=== PATIENT | female | born 2000 | race Caucasian/White ===

== ENCOUNTER 2020-04-07 08:46 | Outpatient (CLI) | payer BC, SELFPAY ==
[2020-04-07 08:56] LABS: Hematocrit 38.1 % (35.0-49.0); Hemoglobin 11.5 g/dL (12.0-15.0); Mean Corpuscular HGB Conc 30.2 g/dL (32.0-36.0); Mean Corpuscular Hemoglobin 25.3 pg (27.0-31.0); Mean Corpuscular Volume 83.9 fL (78.0-102.0); Mean Platelet Volume 8.3 fl (9.2-11.8); Platelet Count Result 335 K/mm3 (150-420); Red Blood Count 4.54 M/mm3 (4.20-5.40); Red Cell Distribution Width 14.6 % (11.6-14.4); White Blood Count 12.2 K/mm3 (4.8-10.8)
[2020-04-07 09:52] LABS: Alanine Aminotransferase 23 U/L (14-59); Albumin Level 3.6 g/dL (3.4-5.0); Alkaline Phosphatase 70 U/L (46-116); Anion Gap 8 mmol/L (8-16); Aspartate Amino Transferase < 10 U/L (15-37); Bilirubin,Total 0.1 mg/dL (0.00-1.00); Blood Urea Nitrogen 9 mg/dL (7-18); Calcium 8.8 mg/dL (8.5-10.1); Carbon Dioxide 26 mmol/L (21-32); Chloride 105 mmol/L (98-108); Estimated Glomerular Filt Rate > 60; Glucose 100 mg/dL (70-99); Osmolality Calculated 286 mOsm/kg (285-295); Potassium 4.5 mmol/L (3.5-5.1); Sodium 139 mmol/L (136-145); Total Protein 7.6 g/dL (6.4-8.2)
== END 2020-04-07 08:47 | disposition home or self-care (01) ==
PROVIDERS: PCP Family Medicine; Visit Provider Family Medicine
DX: D64.9 Anemia, unspecified (principal)
CPT/HCPCS: 36415; 80053; 85027

== ENCOUNTER 2021-02-10 09:42 | Outpatient (CLI) | payer BC, SELFPAY ==
[2021-02-10 10:49] LABS: SARS-CoV-2 RNA PCR Negative (Negative)
== END 2021-02-10 09:43 | disposition home or self-care (01) ==
LOC: CHSLAB 09:45
PROVIDERS: PCP Family Medicine; Visit Provider Nurse Practitioner Family
DX: R09.81 Nasal congestion (principal); Z20.822 Contact with and (suspected) exposure to COVID-19
CPT/HCPCS: C9803; U0003; U0005

== ENCOUNTER 2021-02-10 11:17 | Emergency (ER) | payer BC, SELFPAY ==
--- NOTE | ~2021-02-10 | XR_ITS ---
XR chest 1V portable DATE: 02/10/2021 13:34 INDICATION: Cough, fever, shortness of breath. Headache. TECHNIQUE: Portable upright AP chest on 02/10/2021 at 1346 hours COMPARISON: None FINDINGS: Normal heart size. No hilar or mediastinal enlargement. No pulmonary infiltrate or consolid ation, pleural effusion or pulmonary vascular congestion or pneumothorax is detected. Included skelet al structures are unremarkable. IMPRESSION: No active cardiopulmonary disease Reviewed, dictated and finalized at location B.
[2021-02-10 13:00] VITALS: BP 152/107; PULSE 117; RESP 18; TEMP 37.3; O2SAT 98
--- NOTE | 2021-02-10 13:20 | ED.GENADULT ---
HPI - General Adult General Chief complaint: Upper Respiratory Infection Stated complaint: fever,vomiting,coughing, Covid -, Source: patient Mode of arrival: ambulatory Limitations: no limitations History of Present Illness HPI narrative: Elda is a 20F with a PMH of anemia, obesity, insomnia, and chronic sinusitis that prestented to the ED with several days of feeling ill. She developed a low grade fever 4-5 days ago. She also has fatigue, body aches, congestion, weakness and a persistent cough. She also get very nauseated when she eats. She has had some non bloody vomiting. No diarrhea. Related Data Allergies Allergy/AdvReac Type Severity Reaction Status Date / Time No Known Allergies Allergy Verified 02/08/21 10:43 Review of Systems Constitutional: Constitutional: Reports as per HPI Eyes: Eyes: Reports no additional eye complaints ENT: Reports as per HPI Cardiovascular: Cardiovascular: Reports no additional cardiovascular complaints Respiratory: Respiratory: Reports as per HPI Gastrointestinal: Gastrointestinal: Reports as per HPI Genitourinary: Genitourinary: Reports no additional female genitourinary complaints Musculoskeletal: Musculoskeletal: Reports myalgias Integumentary/Breasts: Skin/Breast: Reports system reviewed and no additional complaints, except as docu Neurologic: Reports system reviewed and no additional complaints, except as documented Psychiatric: Psychiatric: Reports no additional psychiatric complaints Endocrine: Endocrine: Reports no additional endocrine complaints Hematologic/Lymphatic: Hematologic/Lymphatic: Reports no additional hematologic/lymphatic complaints Allergic/Immunologic: Allergic/Immunologic: Reports no additional allergic/immunologic complaints [facility] Past Medical History Medical History Anemia Cerumen impaction Chronic sinusitis Insomnia No active medical problems Obesity Surgical History Surgical History No history of previous surgery Family History Family History Father Hypertension Mother Hypertension Social History Social History Smoking status: Never smoker Additional occupation/education comments: [employer] Exam Const: General: no acute distress and alert Orientation/consciousness: patient oriented x3 Limitations: No altered mental status HENMT: Head: normal to inspection Mouth: Yes Normal oral and palatal mucosa present Other: atrauamtic. Enlarged tonsils. Posterior pharynx cobblestoning, Erythematous and boggy nasal turbinates. Eyes: Conjunctivae: conjunctivae normal Pupils: Equal, round and reactive pupils present Neck: Neck: normal visual inspection Other: no lymphadenopathy Chest: Chest palpation & inspection: normal inspection of the chest Resp: Effort & Inspection: normal respiratory effort and not labored Auscultation: clear to auscultation bilaterally Cardio: Rate: tachycardic Rhythm: regular rhythm GI: Inspection: non-distended GI Palp: Yes Soft to palpation, No Tenderness to palpation present (GI) and No Guarding due to palpation present (GI) : General: Yes no CVA tenderness Skin: Other: Skin was warm and wet Neuro: General: patient oriented x3 and moves all extremities Extrem: General: normal to inspection Psych: Mental Status: mental status grossly normal Course Course Emergency Course: Given Tylenol. Ordered flu swab, labs and CXR. COVID was negative on 02/10 and 02/08. Vital Signs Vital signs: Vital Signs Temperature 99.1 F 02/10/21 13:00 Pulse Rate 117 H 02/10/21 13:00 Respiratory Rate 18 02/10/21 13:00 Blood Pressure 152/107 H 02/10/21 13:00 Pulse Oximetry 98 02/10/21 13:00 Temperature 99.1 F 02/10/21 14:28 Pulse Rate 111 H 02/10/21 14:28
[2021-02-10 13:34] LABS: Basophils Absolute Auto 0.04 K/mm3 (0.00-0.10); Basophils Percent Auto 0.4 % (0.0-1.0); Eosinophils Absolute Auto 0.01 K/mm3 (0.02-0.50); Eosinophils Percent Auto 0.1 % (1.0-6.0); Hematocrit 41.2 % (35.0-49.0); Hemoglobin 13.3 g/dL (12.0-15.0); Immature Granulocyte Absolute 0.09 K/mm3 (0.00-0.00); Immature Granulocyte Percent A 0.9 % (0.0-0.0); Lymphocytes Absolute Auto 1.14 K/mm3 (1.10-4.50); Lymphocytes Percent Auto 11.9 % (18.0-42.0); Mean Corpuscular HGB Conc 32.3 g/dL (32.0-36.0); Mean Corpuscular Hemoglobin 26.7 pg (27.0-31.0); Mean Corpuscular Volume 82.6 fL (78.0-102.0); Mean Platelet Volume 8.5 fl (9.2-11.8); Monocytes Absolute Auto 0.73 K/mm3 (0.10-0.90); Monocytes Percent Auto 7.6 % (2.0-11.0); Neutrophils Absolute Auto 7.6 K/mm3 (1.7-7.2); Neutrophils Percent Auto 79.1 % (50.0-70.0); Platelet Count Result 209 K/mm3 (150-420); Red Blood Count 4.99 M/mm3 (4.20-5.40); Red Cell Distribution Width 14.2 % (11.6-14.4); White Blood Count 9.6 K/mm3 (4.8-10.8)
[2021-02-10 13:35] LABS: Add Urine Microscopic? YES; Appearance Urine Sl Cloudy (Clear); Bilirubin Urine 1+ (Negative); Blood Urine 3+ (Negative); Color Urine Yellow (Yellow); Glucose Urine UA Negative (Negative); Ketones Urine Trace (Negative); Leukocyte Esterase Ur Trace (Negative); Nitrate Urine Negative (Negative); Protein Urine 3+ (Negative); Specific Grav Ur 1.025 (1.010-1.020); pH Urine 6.5 (5.0-8.0)
[2021-02-10 13:39] LABS: Bacteria Urine 1+ /hpf; Mucus Urine Moderate /lpf; Squamous Epithelial Cell Urine Moderate /hpf (Few)
[2021-02-10 13:40] LABS: WBC Urine 0-3 /hpf (0-3)
[2021-02-10 13:48] LABS: Alanine Aminotransferase 93 U/L (14-59); Albumin Level 3.9 g/dL (3.4-5.0); Alkaline Phosphatase 68 U/L (46-116); Anion Gap 16 mmol/L (8-16); Aspartate Amino Transferase 50 U/L (15-37); Bilirubin,Total 0.3 mg/dL (0.00-1.00); Blood Urea Nitrogen 9 mg/dL (7-18); Calcium 8.9 mg/dL (8.5-10.1); Carbon Dioxide 23 mmol/L (21-32); Chloride 98 mmol/L (98-108); Estimated CRCL calculation 151 ml/min; Estimated Glomerular Filt Rate > 60; Glucose 105 mg/dL (70-99); Osmolality Calculated 282 mOsm/kg (285-295); Potassium 3.6 mmol/L (3.5-5.1); Sodium 137 mmol/L (136-145); Total Protein 9.4 g/dL (6.4-8.2)
[2021-02-10 13:51] LABS: Influenza Control Valid (Valid)
[2021-02-10] MEDS: cefTRIAXone 1 GM VIAL IM (14:10)
[2021-02-10] MEDS: LIDOCAINE HCL 1% LOCAL INJ 20 ML VIAL (14:13)
[2021-02-10 14:28] VITALS: BP 158/99; PULSE 111; RESP 16; TEMP 37.3; O2SAT 96
== END 2021-02-10 14:33 | disposition home or self-care (01) ==
PROVIDERS: Emergency Provider Family Medicine; PCP Family Medicine
DX: N39.0 Urinary tract infection, site not specified (principal); J06.9 Acute upper respiratory infection, unspecified
CPT/HCPCS: 71045; 80053; 81001; 85025; 87086; 87804; 96372; 99283; J0696

== ENCOUNTER 2021-02-11 10:01 | Emergency (ER) | payer BC, SELFPAY ==
[2021-02-11 10:38] VITALS: BP 186/101; PULSE 93; RESP 18; TEMP 36.5; O2SAT 99
[2021-02-11] MEDS: LACTATED RINGERS 1,000 ML 999 ML IV CONT (10:42)
[2021-02-11] MEDS: KETOROLAC 30 MG/ML VIAL (*BKC) IV PUSH (10:42)
[2021-02-11] MEDS: PHENAZOPYRIDINE HCL 100 MG TABLET 200 MG PO (10:49)
[2021-02-11 11:11] VITALS: BP 133/86; PULSE 86; RESP 18; O2SAT 97
[2021-02-11 11:36] LABS: Add Urine Microscopic? YES; Appearance Urine Clear (Clear); Bilirubin Urine Negative (Negative); Blood Urine 2+ (Negative); Color Urine Light Yellow (Yellow); Glucose Urine UA Negative (Negative); Ketones Urine Negative (Negative); Leukocyte Esterase Ur Negative LEU/UL (Negative); Nitrate Urine Negative (Negative); Protein Urine Negative (Negative); Specific Grav Ur <= 1.005 (1.010-1.020); Urobilinogen Urine 0.2 mg/dL (0.2-1.0); pH Urine 6.5 (5.0-8.0)
--- NOTE | 2021-02-11 11:42 | ED.FEMALEGU ---
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 She stated she has had urinary frequency, urgency and dysuria for the past 2 days, with discomfort radiating to her back on both sides to her groin. The discomfort has been moderately severe, sharp, ongoing since for the last 2 days, partially relieved with aspirin at home. No other signs/ symptoms. Duration is ongoing. MD elicited complaint: dysuria and pelvic pain Onset (ago): minute(s) Location of symptoms: external genitalia Severity: moderate Quality of pain: cramping Consistency: intermittent Vaginal discharge: none Vaginal bleeding: none Urinary symptoms: Dysuria and Frequency Exacerbating factors: urination Relieving factors: urination and medication Associated symptoms: abdominal pain Treatment prior to arrival: NSAIDs Sexual activity: Yes Patient : No Related Data Allergies Allergy/AdvReac Type Severity Reaction Status Date / Time No Known Allergies Allergy Verified 02/08/21 10:43 Review of Systems Constitutional: Constitutional: Reports no additional constitutional complaints Eyes: Eyes: Reports no additional eye complaints ENT: Reports system reviewed and no additional complaints, except as documented Cardiovascular: Cardiovascular: Reports no additional cardiovascular complaints Respiratory: Respiratory: Reports no additional respiratory complaints Gastrointestinal: Gastrointestinal: Reports no additional gastrointestinal complaints Genitourinary: Genitourinary: Reports no additional female genitourinary complaints Musculoskeletal: Musculoskeletal: Reports no additional musculoskeletal complaints Integumentary/Breasts: Skin/Breast: Reports system reviewed and no additional complaints, except as docu Neurologic: Reports system reviewed and no additional complaints, except as documented Psychiatric: Psychiatric: Reports no additional psychiatric complaints Endocrine: Endocrine: Reports no additional endocrine complaints Hematologic/Lymphatic: Hematologic/Lymphatic: Reports no additional hematologic/lymphatic complaints Allergic/Immunologic: Allergic/Immunologic: Reports no additional allergic/immunologic complaints PMFSH Past Medical History Medical History Anemia Cerumen impaction Chronic sinusitis Insomnia No active medical problems Obesity Surgical History Surgical History No history of previous surgery Family History Family History Father Hypertension Mother Hypertension Social History Social History Smoking status: Never smoker Additional occupation/education comments: [employer] Exam Const: General: no acute distress HENMT: Head: normal to inspection Ears: external ears normal and TM's normal bilaterally General nose exam: Normal external nose present Throat: posterior oropharynx normal Eyes: Conjunctivae: conjunctivae normal Pupils: Equal, round and reactive pupils present Neck: Neck: normal visual inspection Chest: Chest palpation & inspection: normal inspection of the chest Resp: Effort & Inspection: normal respiratory effort Auscultation: clear to auscultation bilaterally Cardio: Rate: regular rate Rhythm: regular rhythm GI: GI Palp: Yes Soft to palpation (nontender) Course Vital Signs Vital signs: Vital Signs Temperature 36.5 C 02/11/21 10:38 Pulse Rate 93 02/11/21 10:38 Respiratory Ra
[2021-02-11 11:43] LABS: Squamous Epithelial Cell Urine Few /hpf (Few); WBC Urine 0-3 /hpf (0-3)
[2021-02-11 11:44] LABS: Bacteria Urine Trace /hpf
[2021-02-11 12:52] LABS: Urine Pregnancy Test Negative
[2021-02-11 12:53] LABS: Pregnancy On Board Control Positive
[2021-02-11 13:32] VITALS: BP 155/78; PULSE 93; RESP 18; O2SAT 97
== END 2021-02-11 13:33 | disposition home or self-care (01) ==
PROVIDERS: Emergency Provider Emergency Medicine; PCP Family Medicine
DX: N12 Tubulo-interstitial nephritis, not specified as acute or chronic (principal)
CPT/HCPCS: 81001; 81025; 87205; 96361; 96365; 96375; 99283; 99284; A9270; J0696; J1885; J7120

== ENCOUNTER 2021-02-12 15:16 | Emergency (ER) | payer BC, SELFPAY ==
--- NOTE | ~2021-02-12 | CT_ITS ---
EXAMINATION: CT abdomen pelvis w con DATE: 02/12/2021 17:32 INDICATION: Low abdominal pain. TECHNIQUE: Computed tomography (CT) of the abdomen and pelvis was performed with 100 mL Omnipaque 350 intravenous contrast. Automated exposure control and iterative reconstruction technique were employe d. The dose-length product was 1667.98 mGy-cm. COMPARISON: None. FINDINGS: The visualized portions of the lung bases are clear without pneumonia or pleural effusion. The heart size is normal. No pericardial effusion. The liver, gallbladder, spleen, pancreas, adrenal glands, and kidneys are normal. There are no dilated loops of bowel. The appendix is normal. There ar e no pathologically enlarged lymph nodes. There is no free intraperitoneal fluid. There is mild thora cic spondylosis. IMPRESSION: 1. No etiology for the patient's symptoms. Reviewed, dictated and finalized at location A.
[2021-02-12 15:50] VITALS: BP 146/107; PULSE 120; RESP 18; TEMP 37.1; O2SAT 96
[2021-02-12] MEDS: PANTOPRAZOLE SODIUM IV 40 MG VIAL IV PUSH (16:30)
[2021-02-12] MEDS: SODIUM CHLORIDE 0.9% IV 1,000 ML 999 ML IV CONT (16:30)
--- NOTE | 2021-02-12 16:31 | ED.WEAKNESS ---
HPI - Weakness General Chief complaint: Weakness Stated complaint: weakness, stomach pain Time Seen by Provider: 02/12/21 15:52 Source: patient, family and RN notes reviewed Mode of arrival: ambulatory Limitations: no limitations History of Present Illness Onset (ago): day(s) (1 pt had mild lower abdominal pain and nasal congestion. no acute weakness in the ED. vomiting and loose stools. ) Duration: intermittent Location: other (mild lower abdominal pain) Migration: none Severity: mild Severity scale (1-10): 5 Exacerbating factors: none Associated symptoms: fever/chills and nausea/vomiting Related Data Allergies Allergy/AdvReac Type Severity Reaction Status Date / Time No Known Allergies Allergy Verified 02/08/21 10:43 Review of Systems Review of Systems: All systems reviewed & are unremarkable except as noted in HPI and below Constitutional: Constitutional: Reports as per HPI and Reports no additional constitutional complaints Eyes: Eyes: Reports as per HPI and Reports no additional eye complaints ENT: Reports system reviewed and no additional complaints, except as documented and Reports as per HPI Cardiovascular: Cardiovascular: Reports as per HPI and Reports no additional cardiovascular complaints Respiratory: Respiratory: Reports as per HPI and Reports no additional respiratory complaints Gastrointestinal: Gastrointestinal: Reports as per HPI, Reports no additional gastrointestinal complaints, Reports abdominal pain, Reports diarrhea, Reports nausea and Reports vomiting Genitourinary: Genitourinary: Reports no additional female genitourinary complaints and Reports as per HPI Musculoskeletal: Musculoskeletal: Reports no additional musculoskeletal complaints and Reports as per HPI Integumentary/Breasts: Skin/Breast: Reports system reviewed and no additional complaints, except as docu and Reports as per HPI Neurologic: Reports system reviewed and no additional complaints, except as documented and Reports as per HPI Psychiatric: Psychiatric: Reports no additional psychiatric complaints and Reports as per HPI Endocrine: Endocrine: Reports no additional endocrine complaints and Reports as per HPI Hematologic/Lymphatic: Hematologic/Lymphatic: Reports no additional hematologic/lymphatic complaints and Reports as per HPI Allergic/Immunologic: Allergic/Immunologic: Reports no additional allergic/immunologic complaints and Reports as per HPI PMFSH Past Medical History Medical History Anemia Cerumen impaction Chronic sinusitis Insomnia No active medical problems Obesity Surgical History Surgical History No history of previous surgery Family History Family History Father Hypertension Mother Hypertension Social History Social History Smoking status: Never smoker Additional occupation/education comments: [employer] Exam Const: General: no acute distress and alert Nutritional Appearance: obese Orientation/consciousness: patient oriented x3 Limitations: no limitations HENMT: Head: normal to inspection Ears: external ears normal and TM's normal bilaterally Mouth: Yes lip normal and Yes moist mucous membranes Teeth and gingiva: dentition normal Throat: posterior oropharynx normal Eyes: Conjunctivae: conjunctivae normal Pupils: Equal, round and reactive pupils present EOM: EOMs intact bilaterally Neck: Neck: normal visual inspection and no lymphadenopathy Chest: Chest palpation & inspection: normal inspection of the chest Resp: Effort & Inspection: normal respiratory effort Auscultation: clear to auscultation bilaterally Cardio: Rate: tachycardic GI: GI Palp: Yes Soft to palpation and Yes Tenderness to palpation present (GI) (minimal suprapubic tend
[2021-02-12] MEDS: ONDANSETRON INJ 4 MG/2 ML VIAL IV PUSH (16:32)
[2021-02-12 16:43] LABS: Appearance Urine Clear (Clear); Bilirubin Urine Negative (Negative); Blood Urine 2+ (Negative); Glucose Urine UA Negative (Negative); Hematocrit 37.6 % (35.0-49.0); Ketones Urine Negative (Negative); Leukocyte Esterase Ur Negative (Negative); Mean Corpuscular HGB Conc 31.9 g/dL (32.0-36.0); Mean Corpuscular Hemoglobin 26.6 pg (27.0-31.0); Mean Corpuscular Volume 83.4 fL (78.0-102.0); Mean Platelet Volume 9.5 fl (9.2-11.8); Nitrate Urine Positive (Negative); Platelet Count Result 177 K/mm3 (150-420); Protein Urine 2+ (Negative); Red Blood Count 4.51 M/mm3 (4.20-5.40); Red Cell Distribution Width 13.9 % (11.6-14.4); Specific Grav Ur 1.025 (1.010-1.020); White Blood Count 6.9 K/mm3 (4.8-10.8)
[2021-02-12 16:45] VITALS: BP 150/80
[2021-02-12] MEDS: KETOROLAC (*BKC) 60 MG/2 ML VIAL IM (16:47)
[2021-02-12 16:49] LABS: Add Urine Microscopic? YES; Color Urine Orange (Yellow); Squamous Epithelial Cell Urine Few /hpf (Few); WBC Urine 0-3 /hpf (0-3)
[2021-02-12 16:50] LABS: Bacteria Urine Trace /hpf; Pregnancy On Board Control NEGATIVE; Urine Pregnancy Test Negative
[2021-02-12 17:04] LABS: Alanine Aminotransferase 75 U/L (14-59); Albumin Level 3.3 g/dL (3.4-5.0); Alkaline Phosphatase 68 U/L (46-116); Anion Gap 12 mmol/L (8-16); Aspartate Amino Transferase 56 U/L (15-37); Bilirubin,Total 0.1 mg/dL (0.00-1.00); Blood Urea Nitrogen 6 mg/dL (7-18); Calcium 8.9 mg/dL (8.5-10.1); Carbon Dioxide 27 mmol/L (21-32); Chloride 99 mmol/L (98-108); Estimated CRCL calculation 171 ml/min; Estimated Glomerular Filt Rate > 60; Glucose 88 mg/dL (70-99); Osmolality Calculated 282 mOsm/kg (285-295); Potassium 4.1 mmol/L (3.5-5.1); Sodium 138 mmol/L (136-145); Total Protein 8.7 g/dL (6.4-8.2)
[2021-02-12 17:19] LABS: Total Cells Counted 100
[2021-02-12 17:20] LABS: Band Neutrophils Percent 0 % (0-6); Basophils Percent Manual 0 % (0-1); Eosinophils Absolute Manual 0.06 K/mm3 (0.02-0.5); Eosinophils Percent Manual 1 % (1-6); Lymphocytes Absolute Manual 2.13 K/mm3 (1.1-4.5); Lymphocytes Percent Manual 31 % (18-44); Monocytes Absolute Manual 0.13 K/mm3 (0.1-0.90); Monocytes Percent Manual 2 % (3-9); Neutrophils Absolute Manual 4.55 K/mm3 (1.7-7.2); Neutrophils Percent Manual 66 % (46-73); Platelet Estimate Adequate (Adequate)
[2021-02-12 18:15] VITALS: BP 140/78; PULSE 108; RESP 18; TEMP 36.8; O2SAT 97
== END 2021-02-12 18:18 | disposition home or self-care (01) ==
PROVIDERS: Emergency Provider Emergency Medicine; PCP Family Medicine
DX: N30.00 Acute cystitis without hematuria (principal); J06.9 Acute upper respiratory infection, unspecified
CPT/HCPCS: 36415; 74177; 80053; 81001; 81025; 85025; 96372; 96374; 96375; 99283; 99284; C9113; J1885; J2405; J7030; Q9967

== ENCOUNTER 2021-02-14 07:40 | Emergency (ER) | payer BC, SELFPAY ==
--- NOTE | ~2021-02-14 | CT_ITS ---
EXAMINATION: CT abdomen pelvis wo con DATE: 02/14/2021 09:06 INDICATION: Epigastric pain TECHNIQUE: Computed tomography (CT) of the abdomen and pelvis was performed without intravenous contr ast. The dose-length product was 1588.49 mGy-cm. Automated exposure control and iterative reconstruct ion technique were employed. COMPARISON: CT dated 02/12/2021 FINDINGS: Lung bases are unremarkable. Heart size is normal. No significant pleural or pericardial ef fusion. The liver, spleen, pancreas, adrenal glands and kidneys are unremarkable. Gallbladder is pres ent. There is a possible rectal mass. Nonobstructive bowel gas pattern. No free air or free fluid. Gallbla dder is present. No significant vascular abnormality. No lymphadenopathy. No acute osseous abnormalit y. IMPRESSION: 1. Possible rectal mass near the rectosigmoid junction. 2: No acute abdominal abnormality. Reviewed, dictated and finalized at location A.
[2021-02-14 07:50] VITALS: BP 169/98; PULSE 68; RESP 16; TEMP 37.1; O2SAT 96
[2021-02-14] MEDS: ONDANSETRON HCL ODT 4 MG TABLET PO (08:39)
[2021-02-14] MEDS: PANTOPRAZOLE 40 MG TABLET PO (08:39)
[2021-02-14] MEDS: KETOROLAC (*BKC) 60 MG/2 ML VIAL IM (08:39)
[2021-02-14 08:42] LABS: Hematocrit 35.8 % (35.0-49.0); Hemoglobin 11.4 g/dL (12.0-15.0); Mean Corpuscular HGB Conc 31.8 g/dL (32.0-36.0); Mean Corpuscular Hemoglobin 26.6 pg (27.0-31.0); Mean Corpuscular Volume 83.4 fL (78.0-102.0); Platelet Count Result 190 K/mm3 (150-420); Red Blood Count 4.29 M/mm3 (4.20-5.40); Red Cell Distribution Width 13.9 % (11.6-14.4); White Blood Count 7.7 K/mm3 (4.8-10.8)
[2021-02-14 09:08] LABS: Band Neutrophils Percent 0 % (0-6); Basophils Percent Manual 0 % (0-1); Eosinophils Percent Manual 0 % (1-6); Lymphocytes Absolute Manual 2.77 K/mm3 (1.1-4.5); Lymphocytes Percent Manual 36 % (18-44); Monocytes Absolute Manual 0.61 K/mm3 (0.1-0.90); Monocytes Percent Manual 8 % (3-9); Neutrophils Absolute Manual 4.31 K/mm3 (1.7-7.2); Neutrophils Percent Manual 56 % (46-73)
[2021-02-14 09:09] LABS: Atypical Lymphocytes Present; Platelet Estimate Adequate (Adequate)
--- NOTE | 2021-02-14 10:09 | ED.ABDPAIN ---
HPI - Abdominal Pain General Chief Complaint: Urogenital-Female Stated Complaint: abdomen Pain Time Seen by Provider: 02/14/21 07:52 Source: patient and RN notes reviewed Mode of arrival: ambulatory Limitations: no limitations History of Present Illness MD elicited complaint: abdominal pain Pertinent past history: past UTI Onset (ago): day(s) (3) Pain Consistency: constant Location: epigastric and suprapubic Severity: moderate Pain scale (0-10): 7 Quality: cramping, aching and dull Radiation: none Migration to: no migration Exacerbating factors: bowel movement and vomiting Relieving factors: nothing Associated symptoms: nausea, vomiting and diarrhea Treatments prior to arrival: NSAIDs Related Data Patient : No Allergies Allergy/AdvReac Type Severity Reaction Status Date / Time No Known Allergies Allergy Verified 02/08/21 10:43 Review of Systems Review of Systems: All systems reviewed & are unremarkable except as noted in HPI and below Constitutional: Constitutional: Reports as per HPI and Reports no additional constitutional complaints Eyes: Eyes: Reports as per HPI and Reports no additional eye complaints ENT: Reports system reviewed and no additional complaints, except as documented and Reports as per HPI Cardiovascular: Cardiovascular: Reports as per HPI and Reports no additional cardiovascular complaints Respiratory: Respiratory: Reports as per HPI and Reports no additional respiratory complaints Gastrointestinal: Gastrointestinal: Reports as per HPI, Reports no additional gastrointestinal complaints, Reports abdominal pain, Reports diarrhea, Reports nausea and Reports vomiting Genitourinary: Genitourinary: Reports no additional female genitourinary complaints and Reports as per HPI Musculoskeletal: Musculoskeletal: Reports no additional musculoskeletal complaints and Reports as per HPI Integumentary/Breasts: Skin/Breast: Reports system reviewed and no additional complaints, except as docu and Reports as per HPI Neurologic: Reports system reviewed and no additional complaints, except as documented and Reports as per HPI Psychiatric: Psychiatric: Reports no additional psychiatric complaints and Reports as per HPI Endocrine: Endocrine: Reports no additional endocrine complaints and Reports as per HPI Hematologic/Lymphatic: Hematologic/Lymphatic: Reports no additional hematologic/lymphatic complaints and Reports as per HPI Allergic/Immunologic: Allergic/Immunologic: Reports no additional allergic/immunologic complaints and Reports as per HPI PMFSH Past Medical History Medical History Anemia Cerumen impaction Chronic sinusitis Insomnia No active medical problems Obesity Surgical History Surgical History No history of previous surgery Family History Family History Father Hypertension Mother Hypertension Social History Social History Smoking status: Never smoker Additional occupation/education comments: [employer] Exam Const: General: no acute distress and alert Nutritional Appearance: obese Orientation/consciousness: patient oriented x3 HENMT: Head: normal to inspection Ears: external ears normal and TM's normal bilaterally General nose exam: Normal external nose present and Normal nares present Face and sinus: normal facial exam Mouth: Yes moist mucous membranes Throat: posterior oropharynx normal Eyes: Conjunctivae: conjunctivae normal Pupils: Equal, round and reactive pupils present EOM: EOMs intact bilaterally Neck: Neck: normal visual inspection and no lymphadenopathy Chest: Chest palpation & inspection: normal inspection of the chest and abnormal inspection of the chest Resp: Effort & Inspection: normal respiratory effort Auscultati
[2021-02-14] MEDS: SODIUM CHLORIDE 0.9% IV 500 ML 999 ML IV CONT (10:32)
[2021-02-14] MEDS: MORPHINE SULFATE (*CRX) 4 MG/ML INJ IM (10:34)
[2021-02-14] MEDS: PROMETHAZINE HCL 25 MG/ML AMPUL IM (10:35)
[2021-02-14 11:46] LABS: Anion Gap 9 mmol/L (8-16); Blood Urea Nitrogen 7 mg/dL (7-18); Carbon Dioxide 28 mmol/L (21-32); Chloride 101 mmol/L (98-108); Estimated Glomerular Filt Rate > 60; Glucose 114 mg/dL (70-99); Lactic Acid Reflex 0.8 mmol/L (0.4-2.0); Osmolality Calculated 285 mOsm/kg (285-295); Potassium 3.5 mmol/L (3.5-5.1); Sodium 138 mmol/L (136-145)
[2021-02-14 11:47] LABS: Alanine Aminotransferase 87 U/L (14-59); Alkaline Phosphatase 94 U/L (46-116); Aspartate Amino Transferase 82 U/L (15-37); Bilirubin,Total 0.3 mg/dL (0.00-1.00); Calcium 9.2 mg/dL (8.5-10.1); Lipase 44 U/L (73-393)
[2021-02-14 12:15] VITALS: BP 142/92
== END 2021-02-14 12:15 | disposition home or self-care (01) ==
PROVIDERS: Emergency Provider Emergency Medicine; PCP Family Medicine
DX: K62.89 Other specified diseases of anus and rectum (principal); N39.0 Urinary tract infection, site not specified; R10.13 Epigastric pain
CPT/HCPCS: 36415; 74176; 80053; 83605; 83690; 85025; 96372; 99283; 99284; A9270; J1885; J2270; J2550; J7040

== ENCOUNTER 2021-07-12 13:33 | Outpatient (CLI) | payer BC, SELFPAY ==
[2021-07-12 15:14] LABS: SARS-CoV-2 RNA PCR Positive (Negative)
== END 2021-07-12 13:34 | disposition home or self-care (01) ==
LOC: CHSLAB 13:36
PROVIDERS: PCP Family Medicine; Visit Provider Family Medicine
DX: U07.1 COVID-19 (principal)
CPT/HCPCS: C9803; U0003; U0005

== ENCOUNTER 2021-08-24 09:05 | Outpatient (NON) | payer BC, SELFPAY | END 2021-08-24 09:06 | disposition home or self-care (01) | LOC: CHSLAB 09:07 | PROVIDERS: Visit Provider Family Medicine | DX: M54.50 Low back pain, unspecified (principal) | CPT/HCPCS: 87086 ==

== ENCOUNTER 2022-07-19 15:04 | Outpatient (CLI) | payer BC, SELFPAY ==
--- NOTE | ~2022-07-19 | CT_ITS ---
EXAMINATION: CT abdomen pelvis wo con DATE: 07/19/2022 15:28 INDICATION: Hematuria and flank pain TECHNIQUE: Computed tomography (CT) of the abdomen and pelvis was performed without intravenous contr ast. The dose-length product (DLP) was 1558.03 mGy-cm. Automated exposure control and iterative recon struction technique were employed. COMPARISON: 02/14/2021 FINDINGS: The lung bases are clear. The heart size is normal. The liver, spleen, pancreas, gallbladde r, and adrenal glands are normal. The kidneys are unremarkable. No stones are identified in the kidne ys, ureters, or bladder. No hydronephrosis or hydroureter. The appendix is normal. No pathologically enlarged abdominal or pelvic lymph nodes are identified. There is no free intraperitoneal gas or evid ence of bowel obstruction. There is a fat-containing umbilical hernia. IMPRESSION: 1. No CT correlate for the patient's symptoms. Reviewed, dictated and finalized at location L. RANCE ACCOUNT REPRESENTATIVE
== END 2022-07-19 15:05 | disposition home or self-care (01) ==
LOC: CHSIMG 15:06
PROVIDERS: PCP Family Medicine; Visit Provider Family Medicine
DX: R10.9 Unspecified abdominal pain (principal); R30.0 Dysuria
CPT/HCPCS: 74176

== ENCOUNTER 2022-10-04 15:09 | Outpatient (CLI) | payer BC, SELFPAY ==
--- NOTE | ~2022-10-04 | XR_ITS ---
EXAMINATION: XR foot RT min 3V DATE: 10/04/2022 15:24 INDICATION: Right foot pain TECHNIQUE: Dorsoplantar, lateral, and 2 oblique views of the right foot were obtained. COMPARISON: None. FINDINGS: There is an acute, transverse fracture in the proximal neck of the fifth metatarsal. There appears to be a healed transverse fracture in the proximal neck of the third metatarsal. No additiona l fracture is identified. The joint spaces are normal. There is soft tissue swelling of the foot. IMPRESSION: 1. Acute fracture in the proximal neck of the fifth metatarsal. 2. Probable healed fracture in the proximal neck of the third metatarsal. Reviewed, dictated and finalized at location F.
== END 2022-10-04 15:10 | disposition home or self-care (01) ==
LOC: CHSIMG 15:11
PROVIDERS: PCP Family Medicine; Visit Provider Family Medicine
DX: M79.673 Pain in unspecified foot (principal); S92.331A Displaced fracture of third metatarsal bone, right foot, initial encounter for closed fracture
CPT/HCPCS: 73630

== ENCOUNTER 2023-01-20 13:36 | Emergency (ER) | payer BC, SELFPAY ==
--- NOTE | ~2023-01-20 | CT_ITS ---
EXAMINATION: CT abdomen pelvis w con DATE: 01/20/2023 15:33 INDICATION: Right upper quadrant abdominal pain. Nausea and vomiting. TECHNIQUE: Computed tomography (CT) of the abdomen and pelvis was performed with 100 mL Omnipaque 350 intravenous contrast. Automated exposure control and iterative reconstruction technique were employe d. The dose-length product was 1657.33 mGy-cm. COMPARISON: CT abdomen and pelvis 07/19/2022 FINDINGS: The visualized portions of the lung bases are clear without pneumonia or pleural effusion. The heart size is normal. No pericardial effusion. The liver, spleen, gallbladder, pancreas, adrenal glands, and kidneys are normal. There are no dilated loops of bowel. The appendix is normal. There ar e no pathologically enlarged lymph nodes. There is no free intraperitoneal fluid. There is mild thora cic and lumbar spondylosis. IMPRESSION: 1. No etiology for the patient's symptoms. Reviewed, dictated and finalized at location E.
[2023-01-20 13:36] VITALS: BP 157/81; PULSE 82; RESP 17; TEMP 36.1; O2SAT 98
[2023-01-20 13:43] VITALS: BP 157/81; PULSE 82; RESP 17; TEMP 36.1; O2SAT 98
--- NOTE | 2023-01-20 13:46 | ED.NAVMDI ---
HPI - Nausea/Vomiting/Diarrhea General Chief complaint: Nausea/Vomiting/Diarrhea Stated complaint: vomiting Time Seen by Provider: 01/20/23 13:46 Source: patient and RN notes reviewed Mode of arrival: ambulatory Limitations: no limitations History of Present Illness MD elicited complaint: nausea, vomiting and abdominal pain Onset (ago): day(s) (5) Description of vomiting: bilious Associated nausea: Yes Associated abdominal pain: Yes Location of pain: diffuse Pain consistency: intermittent Severity: moderate Quality: aching, dull and other (burning) Exacerbating factors: none Relieving factors: none Treatment prior to arrival: none Related Data Allergies Allergy/AdvReac Type Severity Reaction Status Date / Time No Known Allergies Allergy Verified 01/20/23 13:42 Review of Systems Review of Systems: All systems reviewed & are unremarkable except as noted in HPI and below Constitutional: Constitutional: Denies chills and Denies fever(s) Cardiovascular: Cardiovascular: Denies chest pain Respiratory: Respiratory: Denies dyspnea Gastrointestinal: Gastrointestinal: Denies constipation, Reports heartburn and Denies diarrhea Genitourinary: Genitourinary: Denies dysuria PMFSH Past Medical History Medical History Anemia Cerumen impaction No active medical problems Obesity Surgical History Surgical History No history of previous surgery Family History Family History Father Hypertension Mother Hypertension Social History Social History Smoking status: Former smoker Lack of Transportation: No Lack of Food: Never True Current Housing: I Have Housing Concerned About Future Housing: No Difficulty Paying Gas/Electric Bills: No Difficulty Paying for Meds: No Currently Unemployed: No Education: High School Diploma/GED Difficulty w/ Childcare or Family Care: No Living arrangements: with family Occupation/Education: occupation Additional occupation/education comments: [employer] Spiritual care concerns: No Exam Const: General: healthy appearing, no acute distress and alert Nutritional Appearance: well nourished and obese morbidly obese Orientation/consciousness: patient oriented x3 Limitations: no limitations Other: 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 HENMT: Head: normal to inspection Ears: external ears normal Face/Nose/Sinus: Normal external nose present Face and sinus: normal facial exam Mouth: Yes moist mucous membranes Eyes: Conjunctivae: conjunctivae normal Cornea: corneas normal Pupils: Equal, round and reactive pupils present EOM: EOMs intact bilaterally Neck: Neck: normal visual inspection Resp: Effort & Inspection: normal respiratory effort Auscultation: clear to auscultation bilaterally Cardio: Rate: regular rate Rhythm: regular rhythm GI: GI Palp: Yes Soft to palpation, Yes Tenderness to palpation present (GI) ( moderate mostly right upper quadrant with positive Maza's sign), Yes Guarding due to palpation present (GI) ( moderate) and No Rebound tenderness present Auscultation: Hypoactive bowel sounds present Back/Spine/Pelvis: Cervical Spine: cervical ROM normal Thoracic/Lumbar Spine: thoraco-lumbar ROM normal Skin: General skin exam: normal color Rashes: no rashes Neuro: General: patient oriented x3, moves all extremities, no focal motor deficits and CN's II-XI intact bilaterally Speech: normal speech Gait exam (Neuro): Normal gait present Extrem: General: normal to inspection and no clubbing, cyanosis or edema Psych: Mental Status: mental status grossly normal Affect: normal affect Attitude: cooperative Course Vital Signs Vital signs: Vital Signs Temperature 36.1 C L 01/20/23 13:36 Pulse Rate 82 01/20/23
[2023-01-20] MEDS: SODIUM CHLORIDE 0.9% IV 1,000 ML 999 ML IV CONT (14:07)
[2023-01-20] MEDS: ONDANSETRON INJ 4 MG/2 ML VIAL IV PUSH (14:08)
[2023-01-20 14:14] LABS: Basophils Absolute Auto 0.05 K/mm3 (0.00-0.10); Basophils Percent Auto 0.3 % (0.0-1.0); Eosinophils Percent Auto 1.1 % (1.0-6.0); Hematocrit 39.9 % (35.0-49.0); Hemoglobin 12.7 g/dL (12.0-15.0); Immature Granulocyte Absolute 0.11 K/mm3 (0.00-0.00); Immature Granulocyte Percent A 0.6 % (0.0-0.0); Lymphocytes Percent Auto 9.1 % (18.0-42.0); Mean Corpuscular HGB Conc 31.8 g/dL (32.0-36.0); Mean Corpuscular Volume 84.7 fL (78.0-102.0); Mean Platelet Volume 8.4 fl (9.2-11.8); Monocytes Absolute Auto 0.38 K/mm3 (0.10-0.90); Neutrophils Absolute Auto 16.2 K/mm3 (1.7-7.2); Neutrophils Percent Auto 86.9 % (50.0-70.0); Platelet Count Result 373 K/mm3 (150-420); Red Blood Count 4.71 M/mm3 (4.20-5.40); Red Cell Distribution Width 13.5 % (11.6-14.4); White Blood Count 18.7 K/mm3 (4.8-10.8)
--- NOTE | 2023-01-20 14:30 | PC.NURSE ---
patient keeps taking blood pressure cuff off, patient educated importance of monitoring her vitals during stay
[2023-01-20 14:31] LABS: Alanine Aminotransferase 48 U/L (14-59); Albumin Level 4.2 g/dL (3.4-5.0); Alkaline Phosphatase 79 U/L (46-116); Amylase 31 U/L (25-115); Anion Gap 14 mmol/L (8-16); Aspartate Amino Transferase 23 U/L (15-37); Bilirubin,Total 0.5 mg/dL (0.00-1.00); Blood Urea Nitrogen 14 mg/dL (7-18); Calcium 9.6 mg/dL (8.5-10.1); Carbon Dioxide 26 mmol/L (21-32); Chloride 99 mmol/L (98-108); Estimated CRCL calculation 154 ml/min; Estimated Glomerular Filt Rate > 60; Glucose 119 mg/dL (70-99); Lipase 15 U/L (16-77); Osmolality Calculated 289 mOsm/kg (285-295); Potassium 3.7 mmol/L (3.5-5.1); Sodium 139 mmol/L (136-145); Total Protein 9.3 g/dL (6.4-8.2)
[2023-01-20 14:54] LABS: Appearance Urine Slightly Cloudy (Clear); Bilirubin Urine 1+ (Negative); Blood Urine 2+ (Negative); Glucose Urine UA Negative (Negative); Ketones Urine 1+ (Negative); Leukocyte Esterase Ur Negative LEU/UL (Negative); Nitrate Urine Negative (Negative); Protein Urine 1+ (Negative); Specific Grav Ur 1.025 (1.010-1.020)
[2023-01-20 14:58] LABS: Pregnancy On Board Control Positive; Urine Pregnancy Test Negative
--- NOTE | 2023-01-20 15:00 | PC.NURSE ---
patient states her pain is getting worse, requesting pain medication. erp aware.
[2023-01-20 15:02] LABS: Add Urine Microscopic? YES; Bacteria Urine 2+ /hpf; Color Urine Dark Yellow (Yellow); Squamous Epithelial Cell Urine Few /hpf (Few); WBC Urine None seen /hpf (0-3)
[2023-01-20] MEDS: DICYCLOMINE HCL INJ 20 MG/2 ML VIAL IM (15:13)
--- NOTE | 2023-01-20 15:15 | PC.NURSE ---
Patient reeducated to keep blood pressure cuff on during stay.
[2023-01-20 15:30] VITALS: BP 142/80; PULSE 62; RESP 17; O2SAT 96
[2023-01-20] MEDS: PANTOPRAZOLE SODIUM IV 40 MG VIAL IV PUSH (15:35)
[2023-01-20] MEDS: METOCLOPRAMIDE HCL INJ 10 MG/2 ML VIAL IV PUSH (16:10)
[2023-01-20 16:32] VITALS: BP 145/82; PULSE 71; RESP 17; TEMP 36.6; O2SAT 99
== END 2023-01-20 16:32 | disposition home or self-care (01) ==
PROVIDERS: Emergency Provider Emergency Medicine; PCP Family Medicine
DX: K52.9 Noninfective gastroenteritis and colitis, unspecified (principal); Z87.891 Personal history of nicotine dependence
CPT/HCPCS: 36415; 74177; 80053; 81001; 81025; 82150; 83690; 85025; 86140; 96361; 96372; 96374; 96375; 99284; C9113; J0500; J2405; J2765; J7030; Q9967